=== PATIENT | female | born 1935 | race Caucasian/White ===

== ENCOUNTER 2017-04-12 09:14 | Day surgery (SDC) | payer MEDICARE, BC ==
[~2017-04-12 09:14] MED LIST: ACETAMINOPHEN-1 EAC1 PO; CARVEDILOL12.5 MG PO; CENTRUM SILVER1 EAC3 PO; CLARITIN10 M2 PO; L-LYSINE500 M2 PO; TRAZODONE HCL50 MG PO; VITAMIN C500 M1 PO; XARELTO20 MG PO
--- NOTE | 2017-04-12 09:51 | NUR ---
TO [place]. INTO GOWN. PERMIT SIGNED. WARM BLANKET ON. DR GUILLERMO NOTIFIED.
--- NOTE | 2017-04-12 14:31 | NUR ---
1330 DR GUILLERMO INTO SEE PT AND DO BIOPTY. CONSENT HAS BEEN SIGNED SITE VERIFIED. SEE DR SOLIMAN. ISAC WELL. VS TAKED AT 1345 PT DRESSED AND DCD AMB WITH FRIEND.
--- NOTE | 2017-04-13 15:52 | OR ---
[facility] [address] [place], [place] [address] Signed DATE OF OPERATION: 04/12/2017 SURGEON: Aria Guillermo MD PREOPERATIVE DIAGNOSIS: BI-RADS category 5 mammogram, right lateral breast. POSTOPERATIVE DIAGNOSIS: BI-RADS category 5 mammogram, right lateral breast. PROCEDURE: Right Biopty gun biopsy of breast tissue. ANESTHESIA: 1% lidocaine. INDICATION: This 81-year-old white woman is known to me from the past having undergone partial colectomy for colon cancer. This was nearly 12 years ago. She has been found on recent mammogram to have an abnormality of the right breast considered BI-RADS category 5. She has not had a mammogram in several years. Palpation of the breast reveals a fullness and thickened area, but no hard mass in the right breast. It is concordant to the mammogram, however, and core biopsy with Biopty gun device is anticipated. The risks of bleeding, infection, and so forth were reviewed with her. Notably, she does take Eliquis and has been off it for 48 hours. FINDINGS: The area in question was palpable, though not clinically suspicious. Multiple biopsies were taken in various tangential planes to it. No untoward bleeding was noted. A Band-Aid was applied. DESCRIPTION OF PROCEDURE: In the supine position with the arm elevated, the area in question was palpated and the area marked with an impression device. The area was prepared with a chlorhexidine solution and draped sterilely. 1% lidocaine with epinephrine was injected locally. A small jasiel was made directly over the area in question with an 11 blade tip and using a 14-gauge Biopty gun device, multiple core biopsies were taken of the area. There was no untoward bleeding. A Band-Aid was applied. ASSESSMENT: Electronically Signed By: ARIA GUILLERMO MD 04/13/17 1552 PATIENT NAME: DANIELLE PARIKHZABETH David OPERATIVE REPORT DATE OF : 35 PHYSICIAN: ARIA GUILLERMO MD REPORT #: [id number] REPORT IS CONFIDENTIAL AND NOT TO BE RELEASED WITHOUT AUTHORIZATION [facility] [address] [place], [place] [address] Signed Biopsy of the area in question has been accomplished. She already knows that if biopsy does not confirm cancer, then open excisional biopsy will be necessary. This will be determined by the pathology report in the near future. Aria Guillermo MD JM/MODL /[id number] cc: Rocío Geronimo MD Electronically Signed By: ARIA GUILLERMO MD 04/13/17 1552 PATIENT NAME: DELANO PARIKH OPERATIVE REPORT DATE OF : 35 PHYSICIAN: ARIA GUILLERMO MD REPORT #: [id number] REPORT IS CONFIDENTIAL AND NOT TO BE RELEASED WITHOUT AUTHORIZATION
[2017-04-22] MEDS ORDERED: ELIQUIS2.5 MG PO (10:28)
[2017-04-22] MEDS ORDERED: ALLOPURINOL300 MG PO (10:29)
== END 2017-04-12 13:45 | disposition home or self-care (01) ==
LOC: OPS 09:14 → DS 09:14 → OPS 09:45 → DS 09:45 → OPS 13:45
PROC: 0HBT3ZX Excision of Right Breast, Percutaneous Approach, Diagnostic (ICD-10-PCS; principal; 2017-04-12)
DX: R92.8 Other abnormal and inconclusive findings on diagnostic imaging of breast (principal)
CPT/HCPCS: 88305

== ENCOUNTER 2017-05-10 09:00 | Day surgery (SDC) | payer MEDICARE, BC ==
[~2017-05-10] VITALS: Ht 154.9 cm; Wt 59.0 kg
[~2017-05-10 09:00] MED LIST changes: +ALLOPURINOL300 MG PO; +ELIQUIS2.5 MG PO
--- NOTE | 2017-05-10 13:22 | NUR ---
05/10/17 1322 Cathy Jordan REPORT FROM INSPECTION AND TESTING SUPERVISOR. PT WAKENS EASILY, NO C/O PAIN.
[2017-05-10] MEDS ORDERED: OXYCODON-ACETA1 EAC2 PO (13:42)
[2017-05-10] MEDS ORDERED: IBUPROFEN600 MG PO (13:42)
--- NOTE | 2017-05-10 15:18 | NUR ---
BP 88/44 HR [address] GUILLERMO. TO GIVE BOLUS LR 1L.
--- NOTE | 2017-05-10 16:33 | NUR ---
DR GUILLERMO IN TO SEE PT. BP 103/76. STATES SHES GOOD TO GO HOME. HAS TAKEN JELLO AND CRACKERS AND WATER.
--- NOTE | 2017-05-10 16:40 | NUR ---
UP TO BR VOIDS 250MLS. AMB WELL. STATES SHE FEELS FINE NO LIGHT HEADINESS OR DIZZINESS. READY TO GO HOME. DID ALLOW TO SLEEP DURING BOLUS IV.
--- NOTE | 2017-05-10 19:54 | OR ---
[facility] [address] [place], [place] [address] Signed DATE OF OPERATION: 05/10/2017 SURGEON: Aria Guillermo MD PREOPERATIVE DIAGNOSIS: BI-RADS category 5, right upper outer quadrant breast mass (mammographic abnormality). POSTOPERATIVE DIAGNOSIS: BI-RADS category 5, right upper outer quadrant breast mass (mammographic abnormality). PROCEDURE: Right needle localized excisional breast biopsy. SURGEON: Aria Guillermo MD ANESTHESIA: Herbie Cardoza CRNA. General LMA. INDICATION: This 81-year-old white woman is a patient of Henry Yoder and known to me from the past and undergone a colectomy for colon cancer greater than 12 years ago. She underwent a recent mammogram, which showed a BI-RADS category 5 lesion in the upper outer aspect of the right side. Palpation revealed only vague findings, but breast atrophy and so forth was such that it was likely the lesion would be able to be biopsied with Bioptigen device. She did undergo biopsy by me, but the pathology report was negative for malignancy. On the basis of her BI-RADS category 5 lesion, I have recommended needle localized excisional biopsy. The lesion was not considered appropriate for image-guided biopsy otherwise due to its proximity to the chest wall. Of note, patient is anticoagulated chronically with Eliquis for atrial fibrillation. She is known to have a thoracic aortic aneurysm as well. She has an AICD in place. She understands the risk of bleeding, infection, other unforeseen complications related to needle localized excisional biopsy, and wished to proceed. FINDINGS: The needle was well positioned in relation to the lesion. SPECIMEN: Radiograph confirmed the lesion to be excised completely. As regards the breast tissue is somewhat atrophied and there is no obvious tethering of the lesion to the chest wall Electronically Signed By: ARIA GUILLERMO MD 05/10/17 195 PATIENT NAME: DELANO PARIKH OPERATIVE REPORT DATE OF : 35 PHYSICIAN: ARIA GUILLERMO MD REPORT #: [id number] REPORT IS CONFIDENTIAL AND NOT TO BE RELEASED WITHOUT AUTHORIZATION [facility] [address] [place], [place] [address] Signed or elsewhere. DESCRIPTION OF PROCEDURE: The patient was received from radiology suite with needle (wire) emanating from the lateral aspect of the right side. She was given a general anesthetic by LMA technique and the tape and so forth were removed that was protecting the wire for migration. The right breast and chest wall were prepared with a spray Betadine solution and draped sterilely. A curvilinear incision was made near the wire and transection of the dermis was with electrocautery. The wire was delivered into the wound. An Allis clamp was used to grasp the breast parenchyma in conjunction with the wire. Using electrocautery, excision was undertaken reasonably widely to provide negative margin should malignancy be affirmed. It was completely excised. It was noted to be a small buttonhole defect during the course of dissection. Buttonhole defect was secured with running 3-0 Vicryl suture. The breast parenchyma and the remaining breast was reapproximated with interrupted 2-0 Vicryl and the skin closed with a running subcuticular 3-0 Vicryl. Steri-Strips were applied. The specimen was sent for specimen radiograph from by the time of complete closure. It was affirmed to have been fully excised with specimen in the center portion of the excised specimen in conjunction with the needle. Steri-Strips were applied as was a Mepilex silver sponge dressing and OpSite. She was ultimately allowed to emerge from anesthesia, extubated, and taken to recovery room in good condition. Aria Guillermo MD /KETANL /[id number] cc: MD Henry Baumann PA Electronically Signed By: ARIA GUILLERMO MD 05/10/17 1954 PATIENT NAME: JLDELANO HAL OPERATIVE REPORT DATE OF : 35 PHYSICIAN: ARIA GUILLERMO MD REPORT #: [id number] REPORT IS CONFIDENTIAL AND NOT TO BE RELEASED WITHOUT AUTHORIZATION
[2017-05-24] MEDS ORDERED: ELIQUIS2.5 MG PO (14:40)
== END 2017-05-10 16:50 | disposition home or self-care (01) ==
LOC: DS 09:00
PROVIDERS: Surgery
PROC: 0HBT0ZX Excision of Right Breast, Open Approach, Diagnostic (ICD-10-PCS; principal; 2017-05-10 11:00)
DX: C50.411 Malignant neoplasm of upper-outer quadrant of right female breast (principal); M10.9 Gout, unspecified; I10 Essential (primary) hypertension; I48.91 Unspecified atrial fibrillation; I71.2 Thoracic aortic aneurysm, without rupture; Z90.89 Acquired absence of other organs; Z88.8 Allergy status to other drugs, medicaments and biological substances; Z98.41 Cataract extraction status, right eye; Z98.42 Cataract extraction status, left eye; Z96.642 Presence of left artificial hip joint; Z79.01 Long term (current) use of anticoagulants; Z85.038 Personal history of other malignant neoplasm of large intestine; Z86.010 Personal history of colon polyps; Z79.899 Other long term (current) drug therapy; Z98.890 Other specified postprocedural states
CPT/HCPCS: 00404; 19281; 76098; 86622; 88307; 88360; J0690; J1644; J2405; J2704; J3010; J7120

== ENCOUNTER 2017-06-04 07:15 | Day surgery (SDC) | payer MEDICARE, BC ==
[~2017-06-04] VITALS: Ht 154.9 cm; Wt 58.1 kg
[~2017-06-04 07:15] MED LIST changes: +IBUPROFEN600 MG PO; +OXYCODON-ACETA1 EAC2 PO
[2017-06-04] MEDS ORDERED: SUDAFED 12 HOU120 MG PO (07:57)
--- NOTE | 2017-06-04 11:53 | NUR ---
06/04/17 Mildred3 Talita Sloan 1146 PATIENT ARRIVES TO PACU WITH DIESEL TRUCK CRANE OPERATOR PROVIDING AIRWAY SUPPORT, SUCTIONED BY DIESEL TRUCK CRANE OPERATOR, THEN MAINTAINING OWN AIRWAY. RESP EVEN AND SLIGHTLY INCREASED. OXYGEN AT 10 LITERS VIA MASK, DECREASED TO 6 LITERS. PATIENT SLEEPING, OPENS EYES TO VERBAL STIMULI, THEN BACK TO SLEEP.
[2017-06-04] MEDS ORDERED: OXYCODON-ACETA1 EAC2 PO (12:00)
[2017-06-04] MEDS ORDERED: MAPAP325 MG PO (12:00)
--- NOTE | 2017-06-04 12:18 | NUR ---
PT IS BACK TO DS FROM PACU. REPORT TAKEN FOR AJ GUERRA. PT IS DROWSY, BUT ABLE TO HAVE A CONVERSATION. PT REPORTS PAIN TO BE A 3 OR 4 OUT OF 10, STATING THIS IS TOLERABLE FOR HER. PT IS OFFERED WATER AND SOMETHING TO EAT, SHE ACCEPTS. CALL LIGHT IS WITHIN REACH. NO OTHER C/O'S AT THIS TIME
--- NOTE | 2017-06-04 13:01 | NUR ---
PT IS ALERT, ORIENTED AND SUPPORTED BY HER FRIEND WAED. [place] DYLON[place] IS STAYING LONG SHE NEEDS HER. PT SEEMS TO BE DEALING APPROPRIATELY WITH WHAT IS BEFORE HER. PT REQUESTED PRAYER, WILL FOLLOW NEEDED
--- NOTE | 2017-06-04 13:12 | NUR ---
PT REPORTS 3/10 "GETTING BETTER" PAIN. BP APPEARS A LITTLE LOW. PT REPORTS USUALLY HAVING A LOW BP "BECAUSE OF MY ANURYSM" PT RAMONA DIZZINESS, NAUEA, OR LIGHTHEADEDNESS. BED RAILS UP. CALL LIGHT WITHIN REACH.
--- NOTE | 2017-06-04 14:03 | NUR ---
PT REPORTING 4/10 PAIN THAT IS TOLERABLE AND PT STATES SHE DOESN'T WANT ANY ADDITIONAL MEDICAITON AT THIS TIME. PTS BLOOD PRESSURE BACK TO BASELINE. PT REQUESTS TO USE RESTROOM. PT STEADY ON FEET WITH ONE PERSON STAND BY ASSIST. PT CONTINUES TO DENY JAREDA.
--- NOTE | 2017-06-04 14:13 | NUR ---
PT BACK TO BED WITHOUT INCIDENT. PT REPORTS SOME "WOOZINESS" PT ADVISED TO REST AND DRINK SOME MORE FLUIDS BEFORE GOING HOME. PT AGREES. BED RAILS UP. CALL LIGHT WITHIN REACH.
--- NOTE | 2017-06-04 14:36 | NUR ---
BP REASSESSED, REMAINS LOW. PT REPORTS IMPROVEMENTS IN LIGHTHEADEDNESS STATING "IT FEELS BETTER." PT STATES "THIS HAPPENED LAST TIME I HAD SURGERY WELL AND WE JUST HAD TO WAIT IT OUT." FLUIDS OPEN. BED RAILS UP. CALL LIGHT WTHIN REACH.
--- NOTE | 2017-06-04 14:41 | NUR ---
MD CONSULTED REGARDING BLOOD PRESSURE. MD STATES TO LEAVE FLUIDS OPEN, ENCOUARGE PO FLUIDS, AND GIVE IT SOME TIME. PT ENCOAURGED TO DRINK FLUIDS. IV FLUIDS REMAIN OPEN. BED RAILS UP. CALL LIGHT WITHIN REACH.
--- NOTE | 2017-06-04 15:18 | NUR ---
PT UP AND WALKING THE HALLS. PT AMBULATES WELL AND REPORTS SHE HAS A COMPLIANCE EXAMINER. PT REPORTS FEELING COMFORTABLE GOING HOME AT THIS POINT. DC INSTRUCTIONS ARE GIVEN TO PT AND HER CAREGIVER AND BOTH OF THEM VERBALIZE UNDERSTANDING.
--- NOTE | 2017-06-04 15:49 | NUR ---
LE 1535: PT DRESSES SELF W/ASSISTANCE OF FRIEND AND TRANSFERS SELF TO AND THEN TO PERSONAL VEHICLE AND DOES THAT WELL.
--- NOTE | 2017-06-05 14:21 | OR ---
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 Lemmon lymph node negative on frozen pathology. PROCEDURES: 1. Injection of methylene blue for sentinel lymph node identification. 2. Right sentinel lymph node biopsy. ANESTHESIA: General LMA, China Shelton CRNA. INDICATION: This 81-year-old white woman is a patient of Cleo Chavez and known to me from the past having undergone colectomy for colon cancer approximately 12 years ago. In the meantime, she has developed a right infiltrating ductal breast carcinoma, which has been excised completely. Tumor size was 7 mm. 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 The margin on the infiltrating ductal carcinoma is 1 mm and not much less than that on the ductal carcinoma in situ component. The patient has researched fully her options of further management. Given her advanced age and other comorbidities including a rather large thoracic aortic aneurysm, she does not want to undergo radiation therapy to the breast and certainly would not allow for conventional chemotherapy even if lymph nodes were positive for metastatic disease. Conversely, however, she does wish to know her prognosis as regard to breast cancer and wishes to proceed with sentinel lymph node biopsy. She understands the risks of bleeding, infection, and a plan for completion of axillary dissection if sentinel lymph node is proven to be positive. Understands that she wished to proceed. FINDINGS: The sentinel lymph node was readily identified. Good uptake of radionuclide and some uptake of methylene blue dye was accomplished. There were no other sentinel lymph nodes notable in the axilla. Several small lymph nodes that were concurrently seen were unremarkable in her parents. Frozen pathology as interpreted by Dr. Ilia Gonsalez showed Electronically Signed By: ARIA GUILLERMO MD 06/05/17 1427 PATIENT NAME: DELANO PARIKH OPERATIVE REPORT DATE OF : 35 PHYSICIAN: ARIA GUILLERMO MD REPORT #: [id number] REPORT IS CONFIDENTIAL AND NOT TO BE RELEASED WITHOUT AUTHORIZATION [facility] [address] [place], [place] [address] Signed no evidence of metastatic disease to the lymph node. A completion of axillary dissection was not required. Of note, I had offered re-excision of the original tumor site since the ductal carcinoma in situ margin was less than 2 mm, but she declines this. DESCRIPTION OF PROCEDURE: The patient was brought to the operating room after being received from Radiology suite. The x-rays of the radionuclide imaging were reviewed showing uptake into the upper aspect of the axilla. She was given a general LMA-type anesthetic. Preoperative antibiotic Ancef was given and sequential compression device stockings were used as well as heparin subcutaneously administered. After intubation with LMA device and general anesthesia, injection of 1 mL of 50% methylene blue dye was injected in the subepidermal space in the upper outer aspect near the areola. As she did have 2 small incisions there, 3 separate injection sites were used. Interrogation of the axilla with the C-Trak radionuclide probe did show uptake in the high axilla. The right chest and breast were prepared with a chlorhexidine solution and draped sterilely. The C-Trak device was used to plan for optimal incision, which was in the high axilla. A small transverse incision was made in the area of highest activity and dissection carried through the dermis with electrocautery. Using blunt dissection and [place] retractors, the depths of the axilla could be more fully examined. In using the C-Trak device, ultimately area consistent with high uptake was dissected free and a lymph node with some small amount of methylene blue dye identified. This measured about a centimeter in size. Clips were applied to the lymphatic pedicles and it was excised. It was confirmed to have a very high uptake with radionuclide in the past for frozen pathology. Interrogation of the axilla more fully showed no other area of uptake and certainly no methylene blue dye. There were few small lymph nodes in the area, but they were left in situ as they did not show radioactive material uptake. Hemostasis was assured with electrocautery. The axilla was irrigated with sterile saline. Some amount of Arturo hemostatic agent was applied to the raw surfaces and plans made for closure. The parenchyma was closed with interrupted 2-0 Vicryl and skin closed with running subcuticular 3-0 Vicryl. Steri-Strips were applied as was a Mepilex both silver sponge dressing and an OpSite. By this point, the frozen pathology report from Dr. Ilia Gonsalez was returned showing no evidence of metastatic disease to the sentinel lymph node. The patient was allowed to emerge from anesthesia and taken to recovery room in good condition having suffered no complications. Sponge, needle, and instrument counts reported as correct x3. Electronically Signed By: ARIA GUILLERMO MD 06/05/17 1421 PATIENT NAME: DELANO PARIKH OPERATIVE REPORT DATE OF : 35 PHYSICIAN: ARIA GUILLERMO MD REPORT #: [id number] REPORT IS CONFIDENTIAL AND NOT TO BE RELEASED WITHOUT AUTHORIZATION [facility] [address] [place], [place] [address] Signed MD JAMES Bassett/KRUNAL /[id number] cc: MD Cleo Baumann PA-C Electronically Signed By: ARIA GUILLERMO MD 06/05/17 1421 PATIENT NAME: DELANO PARIKH OPERATIVE REPORT DATE OF : 35 PHYSICIAN: ARIA GUILLERMO MD REPORT #: [id number] REPORT IS CONFIDENTIAL AND NOT TO BE RELEASED WITHOUT AUTHORIZATION
== END 2017-06-04 15:35 | disposition home or self-care (01) ==
LOC: DS 07:15 → EDSTATUS 08:30 → NUC 08:30 → DS 15:35
PROVIDERS: Surgery
PROC: 07B50ZX Excision of Right Axillary Lymphatic, Open Approach, Diagnostic (ICD-10-PCS; principal; 2017-06-04 10:15)
DX: D05.11 Intraductal carcinoma in situ of right breast (principal); M10.9 Gout, unspecified; I10 Essential (primary) hypertension; I48.91 Unspecified atrial fibrillation; I71.2 Thoracic aortic aneurysm, without rupture; Z88.8 Allergy status to other drugs, medicaments and biological substances; Z90.89 Acquired absence of other organs; Z98.41 Cataract extraction status, right eye; Z98.42 Cataract extraction status, left eye; Z96.642 Presence of left artificial hip joint; Z98.890 Other specified postprocedural states; Z85.038 Personal history of other malignant neoplasm of large intestine; Z90.49 Acquired absence of other specified parts of digestive tract
CPT/HCPCS: 00404; 78195; 88307; 88342; A9541; J0690; J1644; J2250; J2405; J2704; J3010; J7120

== ENCOUNTER 2017-10-31 19:32 | Emergency (ER) | payer MEDICARE, BC ==
[~2017-10-31] VITALS: Ht 154.9 cm; Wt 58.1 kg
[~2017-10-31 19:32] MED LIST changes: +MAPAP325 MG PO; +SUDAFED 12 HOU120 MG PO
[2017-10-31] MEDS ORDERED: ELIQUIS2.5 MG PO (19:51)
== END 2017-10-31 21:00 | disposition home or self-care (01) ==
LOC: ED 19:32
DX: T82.837A Hemorrhage due to cardiac prosthetic devices, implants and grafts, initial encounter (principal); I48.91 Unspecified atrial fibrillation; I10 Essential (primary) hypertension; Z88.8 Allergy status to other drugs, medicaments and biological substances; Z79.899 Other long term (current) drug therapy; Z79.01 Long term (current) use of anticoagulants
CPT/HCPCS: 99282